=== PATIENT | male | born 1990 | race Caucasian/White ===

== ENCOUNTER 2016-11-13 06:16 | Emergency (ER) | payer OTHER ==
[~2016-11-13] VITALS: Ht 190.5 cm; Wt 97.9 kg
[2016-11-13 06:23] VITALS: BP 122/67; PULSE 62; RESP 20; TEMP 97.6; O2SAT 100
[2016-11-13] MEDS ORDERED: AUGM875T PO (07:11)
--- NOTE | 2016-11-13 07:11 | PD ---
HPI Chief Complaint: ENT Complaint Time Seen by Provider: 07:05 Travel History International Travel<30 days: No Contact w/Intl Traveler<30days: No Traveled to known affect area: No History of Present Illness HPI Patient is a 26-year-old male who presents to emergency room with complaints of sore throat. Patient reports that he has had a sore throat for the past 2 days , reports increased pain with swallowing. Patient with no fevers or chills. Patient with no cough or congestion. Patient reports that his ears hurt him when he swallows. Patient has been able to eat soft foods and drink fluids for the past 2 days. [facility] Past Medical History Medical History: Denies Significant Hx Past Surgical History Surgical History: No Previous Surgery Social History Alcohol Use: No Tobacco Use: No Substance Use: No Allergies-Medications (Allergen,Severity, Reaction): Coded Allergies: No Known Allergies (Unverified , 11/13/16) Reported Meds & Prescriptions Reported Meds & Active Scripts Active Augmentin (Amoxicillin-Clavulanate) 875-125 mg Tab 875 Mg PO BID 10 Days not for use in CrCl <30 ml/min. Review of Systems General / Constitutional: No: Fever, Chills Eyes: No: Visual changes HENT: Positive: Sore Throat, No: Headaches, Neck Pain Cardiovascular: No: Chest Pain or Discomfort Respiratory: No: Shortness of Breath Gastrointestinal: No: Abdominal Pain Genitourinary: No: Dysuria Musculoskeletal: No: Pain Skin: No Rash Neurologic: No: Weakness Psychiatric: No: Depression Endocrine: No: Polydipsia Hematologic/Lymphatic: No: Easy Bruising Physical Exam Narrative GENERAL: NAD, Nontoxic SKIN: Warm and dry. HEAD: Atraumatic. Normocephalic. EYES: No scleral icterus. No injection or drainage. ENT: No nasal bleeding or discharge. Mucous membranes pink and moist. Patient with white pustules to posterior pharynx NECK: Trachea midline. No JVD. CARDIOVASCULAR: Regular rate and rhythm. No murmur appreciated. RESPIRATORY: No accessory muscle use. Clear to auscultation. Breath sounds equal bilaterally. GASTROINTESTINAL: Abdomen soft, non-tender, nondistended. Hepatic and splenic margins not palpable. MUSCULOSKELETAL: No obvious deformities. No clubbing. No cyanosis. No edema. Data Data Last Documented VS Vital Signs Date Time Temp Pulse Resp B/P Pulse Ox O2 Delivery O2 Flow Rate FiO2 11/13/16 06:23 97.6 62 20 122/67 100 Orders Amoxicil-Clavulanate (Augmentin) (11/13/16 07:15) MDM Medical Decision Making Medical Screen Exam Complete: Yes Emergency Medical Condition: Yes Interpretation(s) Vital Signs Date Time Temp Pulse Resp B/P Pulse Ox O2 Delivery O2 Flow Rate FiO2 11/13/16 06:23 97.6 62 20 122/67 100 Differential Diagnosis Viral pharyngitis, strep pharyngitis, mononucleosis Narrative Course Patient is a 26-year-old male who presents to emergency room with complaints of sore throat for the past 2 days. Patient with no fevers or chills. On examination, patient does have pustules to his posterior pharynx. Plan to treat for presumed strep pharyngitis. Patient will follow-up with his primary care doctor and return to ER as needed Diagnosis Primary Impression: Pharyngitis, acute Qualified Code: J02.8 - Acute pharyngitis due to other specified organisms Patient Instructions: General Instructions Departure Forms: Tests/Procedures, Work Release Enter return to work date: Nov 16, 2016 Additional Instructions: Follow-up with your primary care doctor Return to ER as needed Med/Other Pt SpecificInfo: Prescription(s) given Scripts Amoxicillin-Clavulanate (Augmentin)875-125 mg [id number] Mg PO BID 10 Days Ref 0 not for use in CrCl <30 ml/min. Prov:Kae Wright DO 11/13/16 Disposition: 01 DISCHARGE HOME Condition: Stable Kae Wright DO Nov 13, 2016 07:11
[2016-11-13] MEDS ORDERED: AMOXICILLIN/CLAVULANATE K 875 MG TAB PO ONE (07:15)
[2016-11-15] MEDS ORDERED: PRED20 PO (10:00)
== END 2016-11-13 07:29 | disposition home or self-care (01) ==
LOC: PHED 06:16
DX: J02.8 Acute pharyngitis due to other specified organisms (principal)
CPT/HCPCS: 99282